=== PATIENT | female | born 1935 | race Caucasian/White ===

== ENCOUNTER 2017-06-28 16:30 | Inpatient (IN) | payer MEDICARE, BC ==
[~2017-06-28] VITALS: Ht 162.6 cm; Wt 62.2 kg
[2017-06-28 17:41] VITALS: BP 154/71; PULSE 86; TEMP 97.8
[2017-06-28] MEDS ORDERED: TOPROL XL 50MG50 MG PO (17:49)
[2017-06-28] MEDS ORDERED: LOTENSIN20 MG PO (17:49)
[2017-06-28] MEDS ORDERED: CALCIUM 600 PLU1 TAB PO (17:50)
[2017-06-28] MEDS ORDERED: SERAX 15MG15 MG/CAP PO (17:50)
[2017-06-28] MEDS ORDERED: ACTONEL 35MG TA35 MG PO (17:51)
[2017-06-28] MEDS ORDERED: CITRUCEL WITH500 MG PO (17:51)
[2017-06-28] MEDS ORDERED: LIBRAX CAPSULE1 CAP PO (17:52)
[2017-06-28] MEDS ORDERED: FELDENE20 MG PO (17:53)
[2017-06-28] MEDS ORDERED: MULTI VITAMINS1 TAB PO (17:53)
[2017-06-28] MEDS ORDERED: MUCINEX 60600 MG/TA1 PO (17:53)
[2017-06-28 22:21] VITALS: BP 159/84; PULSE 107; TEMP 98.2
[2017-06-29 02:21] VITALS: BP 138/59; PULSE 102; TEMP 98.2
[2017-06-29 06:24] VITALS: BP 136/55; PULSE 110; TEMP 99.5
[2017-06-29 07:54] LABS: MEAN CELL VOLUME 97 fl (80.0-100.0); MEAN CORPUSCULAR HGB CONC 36 g/dl (33.0-37.0); MEAN PLATELET VOLUME 10.2 fl (7.4-10.4); PLATELET COUNT 245 K/mm3 (130-400); RED BLOOD COUNT 2.87 M/mm3 (4.10-5.30)
[2017-06-29 07:56] LABS: HEMATOCRIT 27.9 % (37.0-47.0); HEMOGLOBIN 9.9 g/dl (12.5-16.0); MEAN CORPUSCULAR HEMOGLOBIN 34 pg (27.0-31.0)
[2017-06-29 07:57] LABS: ADD PATHOLOGY DIFF REVIEW NO
[2017-06-29 08:03] LABS: CALCIUM 7.8 mg/dL (8.4-10.2); CREATININE, serum 0.58 mg/dL (0.52-1.25); MAGNESIUM 1.8 mg/dL (1.6-2.3); POTASSIUM 3.2 mmol/L (3.4-5.0)
[2017-06-29 08:36] LABS: BAND 8 % (0-10); LYMPHOCYTE 5 % (20.0-51.0); NEUTROPHILS 84 % (42.0-75.2); PLATELET ESTIMATE NORMAL (NORMAL); TOTAL CELLS COUNTED 100
[2017-06-29 09:33] VITALS: BP 126/56; PULSE 95; TEMP 98
[2017-06-29 14:50] VITALS: BP 142/65; PULSE 100; TEMP 98.5
[2017-06-29 17:56] VITALS: BP 151/61; PULSE 98; TEMP 99.1
[2017-06-29 22:12] VITALS: BP 123/49; PULSE 90; TEMP 98.2
[2017-06-30] VITALS (426 sets, daily range): BP systolic 138–1326; BP diastolic 61–80; PULSE 72–133; TEMP 98–99.1; O2SAT 66–100
[2017-06-30 07:28] LABS: MEAN CELL VOLUME 97 fl (80.0-100.0); MEAN CORPUSCULAR HGB CONC 35 g/dl (33.0-37.0); PLATELET COUNT 254 K/mm3 (130-400); RED BLOOD COUNT 2.87 M/mm3 (4.10-5.30); WHITE BLOOD COUNT 9.6 K/mm3 (4.8-10.8)
[2017-06-30 07:32] LABS: HEMATOCRIT 27.9 % (37.0-47.0); HEMOGLOBIN 9.8 g/dl (12.5-16.0); MEAN CORPUSCULAR HEMOGLOBIN 34 pg (27.0-31.0)
[2017-06-30 07:33] LABS: ADD PATHOLOGY DIFF REVIEW NO
[2017-06-30 07:46] LABS: CALCIUM 7.4 mg/dL (8.4-10.2); CREATININE, serum 0.54 mg/dL (0.52-1.25); POTASSIUM 3.2 mmol/L (3.4-5.0)
[2017-06-30 08:23] LABS: BAND 9 % (0-10); LYMPHOCYTE 8 % (20.0-51.0); METAMYELOCYTE 1 % (0-0); NEUTROPHILS 78 % (42.0-75.2); TOTAL CELLS COUNTED 100
[2017-06-30 08:24] LABS: PLATELET ESTIMATE NORMAL (NORMAL)
[2017-06-30 13:07] LABS: TROPONIN-I < 0.012 ng/mL (0.000-0.034)
[2017-07-01] VITALS (589 sets, daily range): BP systolic 105–158; BP diastolic 39–66; PULSE 63–92; TEMP 97.4–98.2; O2SAT 62–100
[2017-07-01 06:13] LABS: MEAN CELL VOLUME 100 fl (80.0-100.0); MEAN CORPUSCULAR HGB CONC 34 g/dl (33.0-37.0); MEAN PLATELET VOLUME 9.6 fl (7.4-10.4); PLATELET COUNT 277 K/mm3 (130-400); RED BLOOD COUNT 2.94 M/mm3 (4.10-5.30); WHITE BLOOD COUNT 17.7 K/mm3 (4.8-10.8)
[2017-07-01 06:17] LABS: ADD PATHOLOGY DIFF REVIEW NO; HEMATOCRIT 29.4 % (37.0-47.0); MEAN CORPUSCULAR HEMOGLOBIN 34 pg (27.0-31.0)
[2017-07-01 06:24] LABS: INR 1.3 (0.8-3.0); PROTHROMBIN TIME 14.2 SECONDS (9.7-12.8)
[2017-07-01 06:28] LABS: CALCIUM 7.6 mg/dL (8.4-10.2); CREATININE, serum 0.53 mg/dL (0.52-1.25); POTASSIUM 3.6 mmol/L (3.4-5.0)
[2017-07-01 06:54] LABS: BAND 32 % (0-10); LYMPHOCYTE 8 % (20.0-51.0); NEUTROPHILS 58 % (42.0-75.2); PLATELET ESTIMATE NORMAL (NORMAL); TOTAL CELLS COUNTED 100
[2017-07-01 06:56] LABS: ANISOCYTOSIS 1+
[2017-07-02] VITALS (19 sets, daily range): BP systolic 112–162; BP diastolic 46–107; PULSE 75–98; TEMP 97.8–98.6
[2017-07-02 01:04] LABS: MEAN CELL VOLUME 97 fl (80.0-100.0); MEAN CORPUSCULAR HGB CONC 35 g/dl (33.0-37.0); MEAN PLATELET VOLUME 9.3 fl (7.4-10.4); PLATELET COUNT 305 K/mm3 (130-400); WHITE BLOOD COUNT 19.8 K/mm3 (4.8-10.8)
[2017-07-02 01:08] LABS: ADD PATHOLOGY DIFF REVIEW NO; HEMATOCRIT 27.1 % (37.0-47.0); HEMOGLOBIN 9.6 g/dl (12.5-16.0); MEAN CORPUSCULAR HEMOGLOBIN 34 pg (27.0-31.0)
[2017-07-02 01:15] LABS: ADJUSTED CALCIUM 9.1 mg/dL (8.4-10.2); ALANINE AMINOTRANSFERASE 41 U/L (9-52); ALBUMIN 2.3 gm/dL (3.5-5.0); ALKALINE PHOSPHATASE 100 U/L (50-136); ANION GAP 6 mmol/L (7-16); BILIRUBIN,TOTAL 0.8 mg/dL (0.0-1.0); BLOOD UREA NITROGEN 18 mg/dL (7-17); CALCIUM 7.7 mg/dL (8.4-10.2); CARBON DIOXIDE 24 mmol/L (22-30); CHLORIDE 104 mmol/L (98-107); CREATININE, serum 0.56 mg/dL (0.52-1.25); GLUCOSE 151 mg/dL (74-106); MAGNESIUM 1.9 mg/dL (1.6-2.3); POTASSIUM 3.1 mmol/L (3.4-5.0); SODIUM 133 mmol/L (137-145); TOTAL PROTEIN 4.5 gm/dL (6.4-8.2)
[2017-07-02 01:16] LABS: BAND 28 % (0-10); LYMPHOCYTE 7 % (20.0-51.0); NEUTROPHILS 62 % (42.0-75.2); PLATELET ESTIMATE NORMAL (NORMAL); TOTAL CELLS COUNTED 100
[2017-07-02 01:37] LABS: TROPONIN-I < 0.012 ng/mL (0.000-0.034)
[2017-07-02 06:52] LABS: MEAN CELL VOLUME 98 fl (80.0-100.0); MEAN CORPUSCULAR HGB CONC 35 g/dl (33.0-37.0); MEAN PLATELET VOLUME 9.6 fl (7.4-10.4); PLATELET COUNT 315 K/mm3 (130-400); RED BLOOD COUNT 2.66 M/mm3 (4.10-5.30); WHITE BLOOD COUNT 16.7 K/mm3 (4.8-10.8)
[2017-07-02 06:57] LABS: HEMOGLOBIN 9.1 g/dl (12.5-16.0); MEAN CORPUSCULAR HEMOGLOBIN 34 pg (27.0-31.0)
[2017-07-02 07:04] LABS: ALBUMIN 2.2 gm/dL (3.5-5.0); BILIRUBIN,TOTAL 0.9 mg/dL (0.0-1.0); CALCIUM 7.6 mg/dL (8.4-10.2); CREATININE, serum 0.52 mg/dL (0.52-1.25); POTASSIUM 3.1 mmol/L (3.4-5.0); TOTAL PROTEIN 4.3 gm/dL (6.4-8.2)
[2017-07-02 07:22] LABS: C-REACTIVE PROTEIN 14.1 mg/dL (0.0-0.9)
[2017-07-03] VITALS: BP 139/50; PULSE 70; TEMP 97.9
[2017-07-03 04:40] VITALS: BP 158/71; PULSE 97; TEMP 98.7
[2017-07-03 07:07] LABS: MEAN CELL VOLUME 99 fl (80.0-100.0); MEAN CORPUSCULAR HGB CONC 35 g/dl (33.0-37.0); MEAN PLATELET VOLUME 9.6 fl (7.4-10.4); PLATELET COUNT 324 K/mm3 (130-400); RED BLOOD COUNT 2.68 M/mm3 (4.10-5.30); WHITE BLOOD COUNT 12.6 K/mm3 (4.8-10.8)
[2017-07-03 07:08] LABS: HEMATOCRIT 26.4 % (37.0-47.0); HEMOGLOBIN 9.2 g/dl (12.5-16.0); MEAN CORPUSCULAR HEMOGLOBIN 34 pg (27.0-31.0)
[2017-07-03 07:09] LABS: ADD PATHOLOGY DIFF REVIEW NO
[2017-07-03 07:16] LABS: CALCIUM 7.4 mg/dL (8.4-10.2); CREATININE, serum 0.49 mg/dL (0.52-1.25); MAGNESIUM 1.5 mg/dL (1.6-2.3); POTASSIUM 3.1 mmol/L (3.4-5.0)
[2017-07-03 07:52] LABS: BAND 8 % (0-10); LYMPHOCYTE 19 % (20.0-51.0); NEUTROPHILS 70 % (42.0-75.2); TOTAL CELLS COUNTED 100
[2017-07-03 07:54] LABS: PLATELET ESTIMATE NORMAL (NORMAL)
[2017-07-03 10:00] VITALS: BP 145/57; PULSE 81; TEMP 98.9
[2017-07-03 14:00] VITALS: BP 132/47; PULSE 74; TEMP 98.4
[2017-07-03 17:50] VITALS: BP 147/60; PULSE 79; TEMP 98
[2017-07-03 22:02] VITALS: BP 151/61; PULSE 80; TEMP 98.2
[2017-07-04 01:51] VITALS: BP 150/58; PULSE 82; TEMP 98
[2017-07-04 06:07] VITALS: BP 141/58; PULSE 81; TEMP 97.4
[2017-07-04 07:00] LABS: MEAN CELL VOLUME 97 fl (80.0-100.0); MEAN CORPUSCULAR HGB CONC 35 g/dl (33.0-37.0); MEAN PLATELET VOLUME 9.5 fl (7.4-10.4); PLATELET COUNT 335 K/mm3 (130-400); RED BLOOD COUNT 2.79 M/mm3 (4.10-5.30); WHITE BLOOD COUNT 13.1 K/mm3 (4.8-10.8)
[2017-07-04 07:08] LABS: ADD PATHOLOGY DIFF REVIEW NO; HEMATOCRIT 27.1 % (37.0-47.0); HEMOGLOBIN 9.4 g/dl (12.5-16.0); MEAN CORPUSCULAR HEMOGLOBIN 34 pg (27.0-31.0)
[2017-07-04 07:16] LABS: CALCIUM 7.8 mg/dL (8.4-10.2); CREATININE, serum 0.46 mg/dL (0.52-1.25); MAGNESIUM 1.6 mg/dL (1.6-2.3); POTASSIUM 3.4 mmol/L (3.4-5.0)
[2017-07-04 08:41] LABS: BAND 12 % (0-10); EOSINOPHIL 3 % (0-4); LYMPHOCYTE 15 % (20.0-51.0); NEUTROPHILS 70 % (42.0-75.2); PLATELET ESTIMATE NORMAL (NORMAL); TOTAL CELLS COUNTED 100
[2017-07-04 08:42] LABS: HYPOCHROMIA 1+
[2017-07-04 10:00] VITALS: BP 141/64; PULSE 83; TEMP 98.2
[2017-07-04] MEDS ORDERED: CEFTRIAXON2 GM/50 ML IV (11:02)
[2017-07-04] MEDS ORDERED: LOVENOX 3030 MG/0.3 SQ (11:06)
[2017-07-04] MEDS ORDERED: CARDIZEM CD 24240 MG PO (11:07)
[2017-07-04] MEDS ORDERED: ULTRAM 50MG TAB50 MG PO (11:08)
[2017-07-04] MEDS ORDERED: TYLENOL 325MG325 MG PO (11:09)
[2017-07-04 11:51] VITALS: BP 141/64; PULSE 83; TEMP 98.2
[2017-07-09] MEDS ORDERED: LOVENOX 4040 MG/0.4 SQ (11:11)
[2017-07-09] MEDS ORDERED: TYLENOL SU650 MG/SUP RC (11:14)
[2017-07-09] MEDS ORDERED: GENTLE LAXATIVE10 MG RC (11:15)
[2017-07-09] MEDS ORDERED: IMODIUM 2MG CAPS2 MG PO (11:16)
[2017-07-09] MEDS ORDERED: MILK OF MA400 MG/52 PO (11:17)
[2017-07-09] MEDS ORDERED: ALMACONE 360 M360 ML PO (11:18)
== END 2017-07-04 13:53 | DRG 580 ==
LOC: SURG 16:30 → ICU 16:30 → SURG 16:43 → ICU 06-30 09:10 → SURG 07-01 20:45
PROVIDERS: Family Medicine; Nurse Practitioner; Physician Assistant
PROC: 0H9HXZX Drainage of Right Upper Leg Skin, External Approach, Diagnostic (ICD-10-PCS; principal; 2017-06-29)
PROC: 0KBQ0ZZ Excision of Right Upper Leg Muscle, Open Approach (ICD-10-PCS; 2017-06-30)
DX: L03.115 Cellulitis of right lower limb (principal); E87.1 Hypo-osmolality and hyponatremia; L02.415 Cutaneous abscess of right lower limb; E87.6 Hypokalemia; E83.42 Hypomagnesemia; I48.91 Unspecified atrial fibrillation; I10 Essential (primary) hypertension; M16.11 Unilateral primary osteoarthritis, right hip; D64.9 Anemia, unspecified; M81.0 Age-related osteoporosis without current pathological fracture; R73.9 Hyperglycemia, unspecified; S00.03XA Contusion of scalp, initial encounter; W18.30XA Fall on same level, unspecified, initial encounter; B95.4 Other streptococcus as the cause of diseases classified elsewhere
CPT/HCPCS: 99222-AI; 99232-AI; 99233-AI; 99239; A4314; A9284; A9585; C1751; J0696; J1100; J1644; J1650; J2250; J2270; J2405; J2704; J3010; J3370; J3475; J3480; J7030; J7050; Q9967

== ENCOUNTER → 2017-06-28 | Outpatient (CLI) | payer MEDICARE, BC ==
[~2017-06-28] MED LIST: ACTONEL 35MG TA35 MG PO; ALMACONE 360 M360 ML PO; CALCIUM 600 PLU1 TAB PO; CARDIZEM CD 24240 MG PO; CEFTRIAXON2 GM/50 ML IV; CITRUCEL WITH500 MG PO; FELDENE20 MG PO; FERROUS SU325 MG/TAB PO; GENTLE LAXATIVE10 MG RC; IMODIUM 2MG CAPS2 MG PO; LIBRAX CAPSULE1 CAP PO; LOTENSIN20 MG PO; LOVENOX 3030 MG/0.3 SQ; LOVENOX 4040 MG/0.4 SQ; MILK OF MA400 MG/52 PO; MUCINEX 60600 MG/TA1 PO; MULTI VITAMINS1 TAB PO; PRIL40 PO; PROTONIX 40MG T40 MG PO; ROCEPHIN 2GM VIAL21 IV; SERAX 15MG15 MG/CAP PO; TOPROL XL 50MG50 MG PO; TYLENOL 325MG325 MG PO; TYLENOL SU650 MG/SUP RC; ULTRAM 50MG TAB50 MG PO
== END ==
LOC: COL.RAD 15:04
DX: M25.451 Effusion, right hip (principal); L03.115 Cellulitis of right lower limb
CPT/HCPCS: Q9967

== ENCOUNTER → 2017-06-28 | Outpatient (CLI) | payer MEDICARE ==
[~2017-06-28] MED LIST changes: -ALMACONE 360 M360 ML PO; -CARDIZEM CD 24240 MG PO; -CEFTRIAXON2 GM/50 ML IV; -FERROUS SU325 MG/TAB PO; -GENTLE LAXATIVE10 MG RC; -IMODIUM 2MG CAPS2 MG PO; -LOVENOX 3030 MG/0.3 SQ; -LOVENOX 4040 MG/0.4 SQ; -MILK OF MA400 MG/52 PO; -PRIL40 PO; -PROTONIX 40MG T40 MG PO; -ROCEPHIN 2GM VIAL21 IV; -TYLENOL 325MG325 MG PO; -TYLENOL SU650 MG/SUP RC; -ULTRAM 50MG TAB50 MG PO
[2017-06-28 13:11] LABS: BASO # 0.1 (0.0-0.2); EOS % 0.1 % (0-4.0); GRAN # 7.8 (1.4-6.5); GRAN % 89.9 % (42.2-75.2); HEMOGLOBIN 12.3 g/dl (12.5-16.0); LYMPH # 0.4 (1.2-3.4); LYMPH % 4.7 % (20.0-51.0); MEAN CELL VOLUME 99 fl (80.0-100.0); MEAN CORPUSCULAR HEMOGLOBIN 35 pg (27.0-31.0); MEAN CORPUSCULAR HGB CONC 35 g/dl (33.0-37.0); MEAN PLATELET VOLUME 10.8 fl (7.4-10.4); MONO # 0.4 (0.1-0.6); PLATELET COUNT 264 K/mm3 (130-400); RED BLOOD COUNT 3.53 M/mm3 (4.10-5.30); WHITE BLOOD COUNT 8.7 K/mm3 (4.8-10.8)
[2017-06-28 13:15] LABS: HEMATOCRIT 34.8 % (37.0-47.0)
[2017-06-28 13:17] LABS: CALCIUM 8.5 mg/dL (8.4-10.2); CREATININE, serum 0.8 mg/dL (0.52-1.25); POTASSIUM 3.8 mmol/L (3.4-5.0)
[2017-06-28 13:37] LABS: ERYTHROCYTE SEDIMENTATION RATE 48 mm/hr (0-30)
== END ==
LOC: ZCOL.LAB 12:31
DX: M25.551 Pain in right hip (principal); L03.115 Cellulitis of right lower limb

== ENCOUNTER → 2017-06-30 | Outpatient (REF) | LOC: ZLAB.STJ 16:40 | DX: Z01.89 Encounter for other specified special examinations (principal) ==

== ENCOUNTER 2017-07-10 10:00 | Outpatient (RCR) | payer MEDICARE, BC ==
[2017-07-09 11:37] VITALS: BP 136/56; PULSE 74; TEMP 98.4
[2017-07-09 11:55] VITALS: BP 133/48; PULSE 80; TEMP 98.4
[2017-07-09 12:10] VITALS: BP 139/48; PULSE 76; TEMP 98.5
[2017-07-09 12:40] VITALS: BP 149/55; PULSE 79; TEMP 98.5
[2017-07-09 13:40] VITALS: BP 149/56; PULSE 81; TEMP 98.5
[~2017-07-10] VITALS: Ht 162.6 cm; Wt 64.0 kg
[~2017-07-10 10:00] MED LIST changes: -PRIL40 PO
[2017-07-10 10:30] VITALS: BP 121/47; PULSE 72; TEMP 98.4
[2017-07-10 10:50] VITALS: BP 129/48; PULSE 73; TEMP 98.3
[2017-07-10 11:05] VITALS: BP 119/59; PULSE 69; TEMP 98.2
[2017-07-10 11:35] VITALS: BP 133/50; PULSE 74; TEMP 98.3
[2017-07-10 12:31] VITALS: BP 125/67; PULSE 85; TEMP 98
[2017-07-10] MEDS ORDERED: PRIL40 PO (15:55)
[2017-07-15] MEDS ORDERED: FERROUS SU325 MG/TAB PO (10:20)
[2017-07-15] MEDS ORDERED: ROCEPHIN 2GM VIAL21 IV (10:20)
[2017-07-15] MEDS ORDERED: PROTONIX 40MG T40 MG PO (10:20)
[2017-07-30] MEDS ORDERED: FERRO-TIME325 MG PO (08:34)
[2017-07-30] MEDS ORDERED: CARDIZEM CD 24240 MG PO (08:35)
[2017-07-30] MEDS ORDERED: PROTONIX 40MG T40 MG PO (08:36)
[2017-07-30] MEDS ORDERED: BENADRYL25 M2 PO (08:37)
[2017-08-12] MEDS ORDERED: NORCO 325 MG-51 TAB PO (07:56)
== END 2017-08-18 18:00 | disposition home or self-care (01) ==
LOC: EUO 10:00
DX: D64.9 Anemia, unspecified (principal); L03.116 Cellulitis of left lower limb; M01.X51 Direct infection of right hip in infectious and parasitic diseases classified elsewhere; Z45.2 Encounter for adjustment and management of vascular access device
CPT/HCPCS: 99223-AI; 99231-AI; 99232-AI; 99233-AI; 99239; C9113; G0378; G0379; G8978-GP; G8979-GP; G8987-GO; G8988-GO; J0692; J0696; J1170; J1644; J1940; J2405; J2704; J3010; J3370; J3480; J7030; J7042; J7050; P9016

== ENCOUNTER 2017-07-10 14:19 | Inpatient (IN) | payer MEDICARE, BC ==
[~2017-07-10] VITALS: Ht 162.6 cm; Wt 63.0 kg
[2017-07-10] VITALS (13 sets, daily range): BP systolic 120–154; BP diastolic 47–68; PULSE 67–73; TEMP 97.3–99
[2017-07-10 15:52] LABS: BASO % 0.4 % (0.0-2.0); EOS % 0.4 % (0-4.0); GRAN % 71.4 % (42.2-75.2); LYMPH # 1.4 (1.2-3.4); LYMPH % 19.5 % (20.0-51.0); MEAN CELL VOLUME 95 fl (80.0-100.0); MEAN CORPUSCULAR HGB CONC 34 g/dl (33.0-37.0); MONO # 0.5 (0.1-0.6); MONO % 7.7 % (1.7-9.3); PLATELET COUNT 549 K/mm3 (130-400); RED BLOOD COUNT 2.75 M/mm3 (4.10-5.30)
[2017-07-10] MEDS ORDERED: PRIL40 PO (15:55)
[2017-07-10 15:56] LABS: HEMATOCRIT 26.1 % (37.0-47.0); HEMOGLOBIN 8.8 g/dl (12.5-16.0); MEAN CORPUSCULAR HEMOGLOBIN 32 pg (27.0-31.0)
[2017-07-10 16:02] LABS: CALCIUM 8.3 mg/dL (8.4-10.2); CREATININE, serum 0.45 mg/dL (0.52-1.25); POTASSIUM 3.3 mmol/L (3.4-5.0)
[2017-07-10 16:16] LABS: C-REACTIVE PROTEIN 13.9 mg/dL (0.0-0.9)
[2017-07-10 16:21] LABS: ERYTHROCYTE SEDIMENTATION RATE 40 mm/hr (0-30)
[2017-07-11] VITALS (12 sets, daily range): BP systolic 121–166; BP diastolic 45–89; PULSE 70–82; TEMP 97.9–98.7
[2017-07-11 06:38] LABS: HEMATOCRIT 29.2 % (37.0-47.0)
[2017-07-12 04:36] VITALS: BP 141/65; PULSE 80; TEMP 97.7
[2017-07-12 08:39] LABS: ADD PATHOLOGY DIFF REVIEW NO
[2017-07-12 08:48] LABS: MEAN CELL VOLUME 93 fl (80.0-100.0); MEAN CORPUSCULAR HGB CONC 33 g/dl (33.0-37.0); MEAN PLATELET VOLUME 8.7 fl (7.4-10.4); PLATELET COUNT 539 K/mm3 (130-400); WHITE BLOOD COUNT 5.9 K/mm3 (4.8-10.8)
[2017-07-12 08:49] LABS: HEMATOCRIT 32.7 % (37.0-47.0); HEMOGLOBIN 10.9 g/dl (12.5-16.0); MEAN CORPUSCULAR HEMOGLOBIN 31 pg (27.0-31.0)
[2017-07-12 09:08] LABS: CALCIUM 8.1 mg/dL (8.4-10.2); CREATININE, serum 0.46 mg/dL (0.52-1.25); MAGNESIUM 1.8 mg/dL (1.6-2.3); POTASSIUM 3.8 mmol/L (3.4-5.0)
[2017-07-12 10:41] VITALS: BP 132/60; PULSE 67; TEMP 97.7
[2017-07-12 10:59] LABS: BAND 4 % (0-10); EOSINOPHIL 1 % (0-4); LYMPHOCYTE 29 % (20.0-51.0); NEUTROPHILS 62 % (42.0-75.2); PLATELET ESTIMATE INCREASED (NORMAL); TOTAL CELLS COUNTED 100
[2017-07-12 11:00] LABS: ANISOCYTOSIS 1+
[2017-07-12 13:28] VITALS: BP 134/66; PULSE 69; TEMP 97.9
[2017-07-12 17:18] VITALS: BP 140/55; PULSE 68; TEMP 97.9
[2017-07-12 22:09] VITALS: BP 145/83; PULSE 107; TEMP 100.5
[2017-07-12 22:10] VITALS: BP 166/71; PULSE 81; TEMP 97.9
[2017-07-13 02:15] VITALS: BP 157/63; PULSE 81; TEMP 98
[2017-07-13 05:35] VITALS: BP 161/66; PULSE 82; TEMP 97.9
[2017-07-13 06:20] LABS: BASO # 0.1 (0.0-0.2); BASO % 0.9 % (0.0-2.0); EOS # 0.1 (0.0-0.7); EOS % 1.9 % (0-4.0); GRAN # 3.7 (1.4-6.5); GRAN % 64.2 % (42.2-75.2); LYMPH # 1.3 (1.2-3.4); LYMPH % 23.1 % (20.0-51.0); MEAN CELL VOLUME 94 fl (80.0-100.0); MEAN CORPUSCULAR HGB CONC 33 g/dl (33.0-37.0); MEAN PLATELET VOLUME 8.9 fl (7.4-10.4); MONO # 0.5 (0.1-0.6); MONO % 9.4 % (1.7-9.3); PLATELET COUNT 498 K/mm3 (130-400); RED BLOOD COUNT 3.52 M/mm3 (4.10-5.30); WHITE BLOOD COUNT 5.8 K/mm3 (4.8-10.8)
[2017-07-13 06:36] LABS: CALCIUM 8.2 mg/dL (8.4-10.2); CREATININE, serum 0.45 mg/dL (0.52-1.25); POTASSIUM 3.5 mmol/L (3.4-5.0)
[2017-07-13 06:40] LABS: HEMOGLOBIN 10.8 g/dl (12.5-16.0); MEAN CORPUSCULAR HEMOGLOBIN 31 pg (27.0-31.0)
[2017-07-13 09:25] VITALS: BP 139/56; PULSE 80; TEMP 98.2
[2017-07-13 13:38] VITALS: BP 136/58; PULSE 63; TEMP 98.6
[2017-07-13 18:30] VITALS: BP 168/60; PULSE 71; TEMP 98.8
[2017-07-13 21:00] VITALS: BP 165/69; PULSE 78; TEMP 99.3
[2017-07-14 01:30] VITALS: BP 156/68; PULSE 84; TEMP 99.4
[2017-07-14 05:38] VITALS: BP 151/58; PULSE 80; TEMP 97.6
[2017-07-14 09:26] VITALS: BP 154/72; PULSE 87; TEMP 97.7
[2017-07-14 13:49] VITALS: BP 142/56; PULSE 70; TEMP 98
[2017-07-14 17:11] VITALS: BP 155/57; PULSE 71; TEMP 98.2
[2017-07-14 22:17] VITALS: BP 169/68; PULSE 73; TEMP 97.6
[2017-07-15 02:20] VITALS: BP 140/54; PULSE 67; TEMP 98.1
[2017-07-15 05:37] VITALS: BP 164/64; PULSE 82; TEMP 98.1
[2017-07-15 09:07] LABS: HEMATOCRIT 34.6 % (37.0-47.0); HEMOGLOBIN 11.4 g/dl (12.5-16.0)
[2017-07-15 09:39] VITALS: BP 154/67; PULSE 70; TEMP 98
[2017-07-15] MEDS ORDERED: ROCEPHIN 2GM VIAL21 IV (10:20)
[2017-07-15] MEDS ORDERED: FERROUS SU325 MG/TAB PO (10:20)
[2017-07-15] MEDS ORDERED: PROTONIX 40MG T40 MG PO (10:20)
[2017-07-15 12:27] VITALS: BP 154/67; PULSE 70; TEMP 98
[2017-07-15 13:57] VITALS: BP 142/53; PULSE 70; TEMP 98.1
== END 2017-07-15 15:17 | DRG 580 ==
LOC: SURG 14:19
PROVIDERS: Internal Medicine; Orthopaedic Surgery; Physician Assistant
PROC: 0KDS0ZZ Extraction of Right Lower Leg Muscle, Open Approach (ICD-10-PCS; principal; 2017-07-10 18:15)
DX: L03.115 Cellulitis of right lower limb (principal); D62 Acute posthemorrhagic anemia; L02.415 Cutaneous abscess of right lower limb; I48.91 Unspecified atrial fibrillation; I10 Essential (primary) hypertension; E87.6 Hypokalemia
CPT/HCPCS: 99223-AI; 99231-AI; 99232-AI; 99233-AI; 99239; C9113; G0378; G0379; G8978-GP; G8979-GP; G8987-GO; G8988-GO; J0692; J0696; J1170; J1644; J1940; J2405; J2704; J3010; J3370; J3480; J7030; J7042; J7050; P9016

== ENCOUNTER → 2017-07-10 | Outpatient (CLI) | payer MEDICARE, BC ==
[~2017-07-10] MED LIST changes: +ALMACONE 360 M360 ML PO; +CARDIZEM CD 24240 MG PO; +CEFTRIAXON2 GM/50 ML IV; +GENTLE LAXATIVE10 MG RC; +IMODIUM 2MG CAPS2 MG PO; +LOVENOX 3030 MG/0.3 SQ; +LOVENOX 4040 MG/0.4 SQ; +MILK OF MA400 MG/52 PO; +PRIL40 PO; +TYLENOL 325MG325 MG PO; +TYLENOL SU650 MG/SUP RC; +ULTRAM 50MG TAB50 MG PO
[2017-07-10 07:19] LABS: BASO % 0.3 % (0.0-2.0); EOS % 0.5 % (0-4.0); GRAN # 4.3 (1.4-6.5); GRAN % 65.4 % (42.2-75.2); LYMPH # 1.5 (1.2-3.4); LYMPH % 23.5 % (20.0-51.0); MEAN CELL VOLUME 98 fl (80.0-100.0); MEAN CORPUSCULAR HGB CONC 33 g/dl (33.0-37.0); MEAN PLATELET VOLUME 9.4 fl (7.4-10.4); MONO # 0.6 (0.1-0.6); MONO % 9.8 % (1.7-9.3); PLATELET COUNT 534 K/mm3 (130-400); RED BLOOD COUNT 2.03 M/mm3 (4.10-5.30); WHITE BLOOD COUNT 6.5 K/mm3 (4.8-10.8)
[2017-07-10 07:28] LABS: HEMATOCRIT 19.9 % (37.0-47.0); HEMOGLOBIN 6.6 g/dl (12.5-16.0); MEAN CORPUSCULAR HEMOGLOBIN 33 pg (27.0-31.0)
== END ==
LOC: ZCOL.LAB 06:30
PROVIDERS: Internal Medicine
DX: D64.9 Anemia, unspecified (principal)

== ENCOUNTER → 2017-07-17 | Outpatient (REF) ==
[~2017-07-17] MED LIST changes: +BENADRYL25 M2 PO; +FERRO-TIME325 MG PO; +FERROUS SU325 MG/TAB PO; +NORCO 325 MG-51 TAB PO; +PRIL40 PO; +PROTONIX 40MG T40 MG PO; +ROCEPHIN 2GM VIAL21 IV
== END ==
LOC: ZAIV 06:00
DX: Z09 Encounter for follow-up examination after completed treatment for conditions other than malignant neoplasm (principal)

== ENCOUNTER → 2017-08-18 18:00 | Outpatient (RCR) | payer MEDICARE, BC ==
[2017-07-30 08:56] VITALS: BP 129/55; PULSE 81; TEMP 98.4
[2017-07-31 08:03] VITALS: BP 130/52; PULSE 85; TEMP 98
[2017-08-01 08:11] VITALS: BP 136/53; PULSE 80; TEMP 98.3
[2017-08-01 08:23] LABS: BASO # 0.1 (0.0-0.2); EOS # 0.6 (0.0-0.7); EOS % 10.1 % (0-4.0); GRAN % 53.3 % (42.2-75.2); LYMPH # 1.5 (1.2-3.4); MEAN CELL VOLUME 96 fl (80.0-100.0); MEAN CORPUSCULAR HGB CONC 33 g/dl (33.0-37.0); MEAN PLATELET VOLUME 9.1 fl (7.4-10.4); MONO # 0.5 (0.1-0.6); MONO % 9.4 % (1.7-9.3); PLATELET COUNT 429 K/mm3 (130-400); RED BLOOD COUNT 3.33 M/mm3 (4.10-5.30); REDCELL DISTRIBUTION WIDTH-CV 17.2 % (11.5-14.5)
[2017-08-01 08:25] LABS: HEMATOCRIT 31.9 % (37.0-47.0); HEMOGLOBIN 10.4 g/dl (12.5-16.0); MEAN CORPUSCULAR HEMOGLOBIN 31 pg (27.0-31.0)
[2017-08-01 08:35] LABS: CREATININE, serum 0.6 mg/dL (0.52-1.25); POTASSIUM 3.9 mmol/L (3.4-5.0)
[2017-08-01 08:36] LABS: ALBUMIN 3.5 gm/dL (3.5-5.0); BILIRUBIN,TOTAL 0.7 mg/dL (0.0-1.0); C-REACTIVE PROTEIN 6.6 mg/dL (0.0-0.9); TOTAL PROTEIN 6.9 gm/dL (6.4-8.2)
[2017-08-01 09:43] LABS: ERYTHROCYTE SEDIMENTATION RATE 37 mm/hr (0-30)
[2017-08-02 07:49] VITALS: BP 143/54; PULSE 99; TEMP 97.2
[2017-08-03 07:52] VITALS: BP 148/47; PULSE 87
[2017-08-04 08:07] VITALS: BP 141/62; PULSE 92; TEMP 98.1
[2017-08-05 07:48] VITALS: BP 141/59; PULSE 90; TEMP 98.1
[2017-08-06 08:03] VITALS: BP 139/49; PULSE 86; TEMP 97.5
[2017-08-07 08:08] VITALS: BP 130/50; PULSE 85; TEMP 97.5
[2017-08-08 08:17] VITALS: BP 126/52; PULSE 76; TEMP 97.2
[2017-08-08 08:29] LABS: BASO % 0.6 % (0.0-2.0); EOS # 0.1 (0.0-0.7); EOS % 1.5 % (0-4.0); GRAN # 4.8 (1.4-6.5); GRAN % 71.3 % (42.2-75.2); LYMPH # 1.1 (1.2-3.4); LYMPH % 15.7 % (20.0-51.0); MEAN CELL VOLUME 95 fl (80.0-100.0); MEAN CORPUSCULAR HGB CONC 33 g/dl (33.0-37.0); MONO # 0.7 (0.1-0.6); MONO % 10.5 % (1.7-9.3); PLATELET COUNT 392 K/mm3 (130-400); REDCELL DISTRIBUTION WIDTH-CV 17.3 % (11.5-14.5)
[2017-08-08 08:31] LABS: HEMATOCRIT 29.5 % (37.0-47.0); HEMOGLOBIN 9.8 g/dl (12.5-16.0); MEAN CORPUSCULAR HEMOGLOBIN 32 pg (27.0-31.0)
[2017-08-08 08:42] LABS: ALBUMIN 3.4 gm/dL (3.5-5.0); BILIRUBIN,TOTAL 0.8 mg/dL (0.0-1.0); CALCIUM 9.1 mg/dL (8.4-10.2); CREATININE, serum 0.62 mg/dL (0.52-1.25); POTASSIUM 3.8 mmol/L (3.4-5.0); TOTAL PROTEIN 6.8 gm/dL (6.4-8.2)
[2017-08-08 09:01] LABS: C-REACTIVE PROTEIN 17.4 mg/dL (0.0-0.9)
[2017-08-08 09:03] LABS: ERYTHROCYTE SEDIMENTATION RATE 63 mm/hr (0-30)
[2017-08-09 08:15] VITALS: BP 137/46; PULSE 83; TEMP 97.5
[2017-08-10 07:55] VITALS: BP 133/39; PULSE 85; TEMP 97.6
[2017-08-11 07:57] VITALS: BP 141/52; PULSE 84; TEMP 97.9
[2017-08-12 07:48] VITALS: BP 138/49; PULSE 91; TEMP 97.7
[2017-08-13 08:12] VITALS: BP 132/54; PULSE 79; TEMP 97.6
[2017-08-14 07:55] VITALS: BP 138/46; PULSE 84; TEMP 97.8
[2017-08-15 07:55] VITALS: BP 144/54; PULSE 91; TEMP 98.4
[2017-08-15 08:45] LABS: BASO % 0.4 % (0.0-2.0); EOS # 0.1 (0.0-0.7); EOS % 1.4 % (0-4.0); GRAN % 71.7 % (42.2-75.2); LYMPH % 17.8 % (20.0-51.0); MEAN CELL VOLUME 95 fl (80.0-100.0); MEAN CORPUSCULAR HGB CONC 33 g/dl (33.0-37.0); MEAN PLATELET VOLUME 8.5 fl (7.4-10.4); MONO # 0.5 (0.1-0.6); MONO % 8.2 % (1.7-9.3); PLATELET COUNT 420 K/mm3 (130-400); RED BLOOD COUNT 2.98 M/mm3 (4.10-5.30); REDCELL DISTRIBUTION WIDTH-CV 17.1 % (11.5-14.5)
[2017-08-15 08:48] LABS: HEMATOCRIT 28.2 % (37.0-47.0); HEMOGLOBIN 9.3 g/dl (12.5-16.0); MEAN CORPUSCULAR HEMOGLOBIN 31 pg (27.0-31.0)
[2017-08-15 08:56] LABS: ALBUMIN 3.2 gm/dL (3.5-5.0); BILIRUBIN,TOTAL 0.5 mg/dL (0.0-1.0); CALCIUM 8.8 mg/dL (8.4-10.2); CREATININE, serum 0.59 mg/dL (0.52-1.25); POTASSIUM 3.7 mmol/L (3.4-5.0); TOTAL PROTEIN 6.4 gm/dL (6.4-8.2)
[2017-08-15 09:11] LABS: C-REACTIVE PROTEIN 18.7 mg/dL (0.0-0.9)
[2017-08-15 09:13] LABS: ERYTHROCYTE SEDIMENTATION RATE 54 mm/hr (0-30)
[2017-08-16 08:00] VITALS: BP 143/54; PULSE 95; TEMP 97.7
[2017-08-17 08:00] VITALS: BP 145/57; PULSE 88; TEMP 98
[~2017-08-18] VITALS: Ht 162.6 cm; Wt 60.0 kg
[2017-08-18 07:54] VITALS: BP 142/54; PULSE 82; TEMP 97.8
== END | disposition home or self-care (01) ==
LOC: EUO 07-30 07:57
PROVIDERS: Internal Medicine; Internal Medicine Cardiovascular Disease
DX: L02.415 Cutaneous abscess of right lower limb (principal)
CPT/HCPCS: J0696; J1644

== ENCOUNTER → 2017-08-21 | Outpatient (CLI) | payer MEDICARE, BC | LOC: COL.RAD 11:00 | DX: M13.851 Other specified arthritis, right hip (principal); L02.415 Cutaneous abscess of right lower limb; M62.89 Other specified disorders of muscle | CPT/HCPCS: Q9967 ==

== ENCOUNTER 2017-08-25 08:00 | Outpatient (RCR) | payer MEDICARE, BC ==
[2017-08-19 09:25] VITALS: BP 143/62; PULSE 73; TEMP 98
[2017-08-20 08:02] VITALS: BP 131/54; PULSE 84; TEMP 98
[2017-08-21 08:03] VITALS: BP 149/53; PULSE 94; TEMP 97.7
== END 2017-08-29 13:34 | disposition home or self-care (01) ==
LOC: EUO 08:00
DX: L02.415 Cutaneous abscess of right lower limb (principal)
CPT/HCPCS: J0696; J1644

== ENCOUNTER → 2017-09-04 | Outpatient (REF) ==
[2017-09-04 12:44] LABS: BASO % 0.4 % (0.0-2.0); EOS % 0.6 % (0-4.0); GRAN # 4.9 (1.4-6.5); LYMPH # 1.2 (1.2-3.4); LYMPH % 17.1 % (20.0-51.0); MEAN CELL VOLUME 99 fl (80.0-100.0); MEAN CORPUSCULAR HGB CONC 32 g/dl (33.0-37.0); MEAN PLATELET VOLUME 9.6 fl (7.4-10.4); MONO # 0.7 (0.1-0.6); MONO % 9.5 % (1.7-9.3); PLATELET COUNT 405 K/mm3 (130-400); RED BLOOD COUNT 2.41 M/mm3 (4.10-5.30); REDCELL DISTRIBUTION WIDTH-CV 18.3 % (11.5-14.5)
[2017-09-04 12:45] LABS: HEMATOCRIT 23.8 % (37.0-47.0); HEMOGLOBIN 7.7 g/dl (12.5-16.0); MEAN CORPUSCULAR HEMOGLOBIN 32 pg (27.0-31.0)
[2017-09-04 13:06] LABS: BILIRUBIN,TOTAL 0.3 mg/dL (0.0-1.0); CALCIUM 8.7 mg/dL (8.4-10.2); CREATININE, serum 0.5 mg/dL (0.52-1.25); POTASSIUM 3.9 mmol/L (3.4-5.0); TOTAL PROTEIN 5.6 gm/dL (6.4-8.2)
[2017-09-04 13:14] LABS: C-REACTIVE PROTEIN 7.2 mg/dL (0.0-0.9)
[2017-09-04 13:16] LABS: ERYTHROCYTE SEDIMENTATION RATE 35 mm/hr (0-30)
== END ==
LOC: ZCOL.LAB 12:34
PROVIDERS: Internal Medicine Infectious Disease
DX: T14.8XXA Other injury of unspecified body region, initial encounter (principal)

== ENCOUNTER → 2017-09-18 | Outpatient (CLI) | payer MEDICARE, BC | LOC: COL.VAS 13:15 | DX: M43.8X4 Other specified deforming dorsopathies, thoracic region (principal); R29.890 Loss of height; Z95.828 Presence of other vascular implants and grafts ==

== ENCOUNTER 2017-10-08 08:00 | Outpatient (RCR) | payer MEDICARE, BC ==
[2017-10-04 10:03] VITALS: BP 124/55; PULSE 86; TEMP 98.7
[2017-10-05 08:19] VITALS: BP 125/48; PULSE 83; TEMP 97.9
[2017-10-06 07:45] VITALS: BP 105/76; PULSE 78; TEMP 97.8
[2017-10-07 07:55] VITALS: BP 116/47; PULSE 78; TEMP 97.7
[2017-10-07 08:36] LABS: BASO % 1.3 % (0.0-2.0); EOS # 0.1 (0.0-0.7); EOS % 1.9 % (0-4.0); GRAN # 1.7 (1.4-6.5); GRAN % 54.9 % (42.2-75.2); MEAN CELL VOLUME 95 fl (80.0-100.0); MEAN CORPUSCULAR HGB CONC 35 g/dl (33.0-37.0); MONO # 0.3 (0.1-0.6); MONO % 8.6 % (1.7-9.3); PLATELET COUNT 202 K/mm3 (130-400); RED BLOOD COUNT 2.82 M/mm3 (4.10-5.30); REDCELL DISTRIBUTION WIDTH-CV 15.2 % (11.5-14.5)
[2017-10-07 08:44] LABS: HEMATOCRIT 26.8 % (37.0-47.0); HEMOGLOBIN 9.3 g/dl (12.5-16.0); MEAN CORPUSCULAR HEMOGLOBIN 33 pg (27.0-31.0)
[2017-10-07 08:46] LABS: ALBUMIN 3.6 gm/dL (3.5-5.0); BILIRUBIN,TOTAL 0.9 mg/dL (0.0-1.0); CALCIUM 8.7 mg/dL (8.4-10.2); CREATININE, serum 0.53 mg/dL (0.52-1.25); POTASSIUM 4.1 mmol/L (3.4-5.0); TOTAL PROTEIN 6.3 gm/dL (6.4-8.2)
[2017-10-07 09:07] LABS: ERYTHROCYTE SEDIMENTATION RATE 9 mm/hr (0-30)
[~2017-10-08] VITALS: Ht 162.6 cm; Wt 56.8 kg
[2017-10-08 08:08] VITALS: BP 130/54; PULSE 85; TEMP 97.7
== END 2017-10-08 16:03 | disposition home or self-care (01) ==
LOC: EUO 08:00
PROVIDERS: Internal Medicine
DX: M00.9 Pyogenic arthritis, unspecified (principal); Z98.890 Other specified postprocedural states; Z45.2 Encounter for adjustment and management of vascular access device
CPT/HCPCS: J1335; J1644; J7050

== ENCOUNTER 2019-05-08 12:16 | Inpatient (IN) | payer MEDICARE, BC ==
[~2019-05-08] VITALS: Ht 162.6 cm; Wt 61.2 kg
[2019-05-08 13:52] LABS: HEMATOCRIT 38.7 % (37.0-47.0); HEMOGLOBIN 13.2 g/dl (12.5-16.0); MEAN CELL VOLUME 98 fl (80.0-100.0); MEAN CORPUSCULAR HEMOGLOBIN 33 pg (27.0-31.0); MEAN CORPUSCULAR HGB CONC 34 g/dl (33.0-37.0); MEAN PLATELET VOLUME 9.2 fl (7.4-10.4); PLATELET COUNT 377 K/mm3 (130-400); RED BLOOD COUNT 3.95 M/mm3 (4.10-5.30); REDCELL DISTRIBUTION WIDTH-CV 15.2 % (11.5-14.5)
[2019-05-08 14:06] LABS: ALBUMIN 4.6 gm/dL (3.5-5.0); BILIRUBIN,TOTAL 1.4 mg/dL (0.0-1.0); C-REACTIVE PROTEIN 0.9 mg/dL (0.0-0.9); CALCIUM 9.5 mg/dL (8.4-10.2); CREATININE, serum 0.5 (0.52-1.25); POTASSIUM 4.6 mmol/L (3.4-5.0); TOTAL PROTEIN 7.6 gm/dL (6.4-8.2)
[2019-05-08 14:08] LABS: LYMPHOCYTE 11 % (20.0-51.0); NEUTROPHILS 86 % (42.0-75.2); PLATELET ESTIMATE NORMAL (NORMAL)
[2019-05-08 17:49] VITALS: BP 159/66; PULSE 89; TEMP 98
--- NOTE | 2019-05-08 18:14 | NUR ---
Patient resting in bed. Denies pain, reports discomfort in IV. Nurse wrapped with coban, will continue to monitor. VSS. IV CDI fluids infusing. Patient NPO for bowel rest. Patient on droplet precautions pending results of respiratory panel. Contact precautions in place. No further needs expressed from patient. Call light within reach
[2019-05-08 19:54] LABS: COLLECTION METHOD CLEAN CATCH
[2019-05-08 20:00] VITALS: BP 146/65; PULSE 88; TEMP 98.9
[2019-05-08 20:03] LABS: PH 7 (5-8); SQUAMOUS EPITHELIAL 0-2 /hpf; URINE APPEARANCE Clear; URINE BACTERIA None Seen /hpf; URINE BILIRUBIN Negative (NEGATIVE); URINE BLOOD 1+ (NEGATIVE); URINE COLOR Straw; URINE GLUCOSE Negative (NEGATIVE); URINE KETONE Negative (NEGATIVE); URINE LEUKOCYTE ESTERASE Negative (NEGATIVE); URINE NITRATE Negative (NEGATIVE); URINE PROTEIN(semi-quant) Negative (NEGATIVE); URINE UROBILINOGEN Negative (NEGATIVE)
[2019-05-08 21:25] VITALS: BP 144/66; PULSE 89; TEMP 98.7
[2019-05-08 23:53] VITALS: BP 148/54; PULSE 91; TEMP 98.2
--- NOTE | 2019-05-09 01:23 | NUR ---
Patient resting well this shift. Denies pain. Respiratory and GI panels are negative. Taken off isolation. Continues to be NPO. Mouth swabs given for dry mouth. Denies any further needs. Currently resting with eyes closed. Will continue to monitor.
[2019-05-09 03:20] VITALS: BP 143/53; PULSE 84; TEMP 98.3
[2019-05-09 06:01] LABS: BASO % 0.4 % (0.0-2.0); EOS % 0.3 % (0-4.0); GRAN # 5.8 (1.4-6.5); GRAN % 75.3 % (42.2-75.2); LYMPH # 1.3 (1.2-3.4); LYMPH % 17.1 % (20.0-51.0); MEAN CELL VOLUME 99 fl (80.0-100.0); MEAN CORPUSCULAR HGB CONC 34 g/dl (33.0-37.0); MEAN PLATELET VOLUME 9.7 fl (7.4-10.4); MONO # 0.5 (0.1-0.6); MONO % 6.6 % (1.7-9.3); PLATELET COUNT 286 K/mm3 (130-400); REDCELL DISTRIBUTION WIDTH-CV 15.8 % (11.5-14.5)
[2019-05-09 06:02] LABS: ALBUMIN 3.2 gm/dL (3.5-5.0); BILIRUBIN,TOTAL 1.6 mg/dL (0.0-1.0); CALCIUM 7.8 mg/dL (8.4-10.2); CREATININE, serum 0.42 (0.52-1.25); POTASSIUM 3.9 mmol/L (3.4-5.0); TOTAL PROTEIN 5.6 gm/dL (6.4-8.2)
[2019-05-09 06:09] LABS: HEMATOCRIT 29.6 % (37.0-47.0); MEAN CORPUSCULAR HEMOGLOBIN 34 pg (27.0-31.0)
[2019-05-09 06:10] LABS: HEMOGLOBIN 10.1 g/dl (12.5-16.0)
[2019-05-09 07:50] VITALS: BP 136/64; PULSE 76; TEMP 98.5
--- NOTE | 2019-05-09 08:00 | NUR ---
Patient resting in bed at this time. Patient is alert and oriented, answers questions appropriately. Patient denies pain or nausea. Patient 1x assist to bedside commode with walker. Patient transferrs well. Patient voiding well and has small bowel movement. Patient is anxious to have diet advanced. Patient denies further needs at this time, call light within reach.
--- NOTE | 2019-05-09 11:46 | NUR ---
Plan:To return home with Joey as care asst [phone]. Patient also wants her son Klaus [phone] and Joey Noland as her emergency contacts. DPOA is patients Joey Noland. Patient resides at [facility] in [facility]. Assess: SW's met with patient and her Joey at bedside. Patient gave permission to discuss information in front of spouse. Patient reports that she uses a wheelchair at home and a walker to get around when she is out in the community. Patient denies the use of any other DME. Patient reports that her PCP is Dr. Freedman with a follow up appointment scheduled in May 2019, and she gets her medications from [facility] without concerns. patient denied having any other health concerns, and patient denied a need for additional home health services. Action: No additional concerns identified. Patient was educated about community resources and supports.
[2019-05-09 12:28] VITALS: BP 144/60; PULSE 66; TEMP 98
[2019-05-09 16:47] VITALS: BP 140/56; PULSE 68; TEMP 97.8
--- NOTE | 2019-05-09 17:56 | NUR ---
Patient ambulated in the halls this evening with SBA, walker, and gaitbelt. Patient has had no complaints of pain, SOA, or loose stools. Patient continues to ask for diet advancement, explained rationale for advancing slowly. Patient denies further needs at this time, call light within reach.
[2019-05-09 19:42] VITALS: BP 160/56; PULSE 69; TEMP 97.9
[2019-05-10 00:02] VITALS: BP 137/52; PULSE 68; TEMP 97.9
[2019-05-10 03:54] VITALS: BP 128/53; PULSE 64; TEMP 98
--- NOTE | 2019-05-10 06:27 | NUR ---
Patient slept well throughout the night and denies pain. States wanting to go home. Son spoke with this nurse in length about plan of care and is wanting to speak with the doctor this morning and plans to be here when he rounds. Patient denies any further needs. Will continue to monitor.
[2019-05-10 07:03] LABS: BASO % 0.8 % (0.0-2.0); EOS # 0.1 (0.0-0.7); EOS % 2.8 % (0-4.0); GRAN # 1.8 (1.4-6.5); GRAN % 50.4 % (42.2-75.2); LYMPH # 1.2 (1.2-3.4); MEAN CELL VOLUME 99 fl (80.0-100.0); MEAN CORPUSCULAR HGB CONC 34 g/dl (33.0-37.0); MEAN PLATELET VOLUME 9.8 fl (7.4-10.4); MONO # 0.4 (0.1-0.6); MONO % 11.7 % (1.7-9.3); PLATELET COUNT 267 K/mm3 (130-400); RED BLOOD COUNT 2.86 M/mm3 (4.10-5.30); REDCELL DISTRIBUTION WIDTH-CV 15.4 % (11.5-14.5)
[2019-05-10 07:12] LABS: HEMATOCRIT 28.4 % (37.0-47.0); HEMOGLOBIN 9.6 g/dl (12.5-16.0); MEAN CORPUSCULAR HEMOGLOBIN 34 pg (27.0-31.0)
[2019-05-10 07:19] LABS: CALCIUM 7.9 mg/dL (8.4-10.2); CREATININE, serum 0.39 (0.52-1.25); POTASSIUM 3.4 mmol/L (3.4-5.0)
[2019-05-10 08:09] VITALS: BP 125/71; PULSE 59; TEMP 97.4
--- NOTE | 2019-05-10 08:40 | NUR ---
Patient resting in bed this morning. SBA to bedside commode where patient was continent of urine. Patient denies pain or SOA this morning, is very anxious to see the doctor to find out if she can advance her diet or possibly discharge today. Patient denies further needs at this time, call light within reach.
--- NOTE | 2019-05-10 12:02 | NUR ---
Discharge teaching completed. Patient instructed to make follow up appointment with PCP and get a CBC at the lab in one week. IV discontinued, catheter removed intact and hemostasis achieved. Telemetry removed. Discharge instructions and information packets reviewed with patient, patient and family denied questions or needs. Patient dressed with assist of staff and gathered belongings, patient agrees that she has her valuables on her person. Patient and family escorted out via wc to the visitor entrance.
== END 2019-05-10 12:02 | disposition home or self-care (01) | DRG 391 ==
LOC: COL.ER 12:16 → SURG 15:15 → COL.ER 15:15 → SURG 15:15 → EDBEDREQ 15:46 → EDBEDREQTM 15:47 → SURG 05-10 03:00
PROVIDERS: Emergency Medicine; Physician Assistant; ADMIT Family Medicine
DX: A08.4 Viral intestinal infection, unspecified (principal); J69.0 Pneumonitis due to inhalation of food and vomit; I10 Essential (primary) hypertension; K29.70 Gastritis, unspecified, without bleeding; I48.91 Unspecified atrial fibrillation; F41.9 Anxiety disorder, unspecified; M19.90 Unspecified osteoarthritis, unspecified site; M81.0 Age-related osteoporosis without current pathological fracture; E87.8 Other disorders of electrolyte and fluid balance, not elsewhere classified; K57.90 Diverticulosis of intestine, part unspecified, without perforation or abscess without bleeding; R53.81 Other malaise; Z88.0 Allergy status to penicillin; Z88.2 Allergy status to sulfonamides; Z88.8 Allergy status to other drugs, medicaments and biological substances; Z88.6 Allergy status to analgesic agent
CPT/HCPCS: 99222-AI; 99233-AI; 99239; A9284; C9113; J0456; J1650; J2405; J3010; J7030; J7050; Q9967